=== PATIENT | female | born 1980 | race Two or more races ===

== ENCOUNTER 2024-02-19 19:12 | Emergency (ER) | payer MEDICARE, MEDICAID ==
[~2024-02-19] VITALS: Ht 152.4 cm; Wt 50.0 kg
[2024-02-19] MEDS: SODIUM CHLORIDE 0.9% 500 ML IV ONE (20:00)
[2024-02-19 20:24] LABS: Basophils # (auto) 0.1 10 ^3/uL (0-0.2); Basophils % (auto) 1.3 % (0.0-2.0); Eosinophils # (auto) 0.2 10 ^3/uL (0-0.8); Eosinophils % (auto) 2.1 % (0.0-7.0); Hematocrit 31.6 % (36.0-46.0); Hemoglobin 10.2 g/dL (12.2-16.2); Lymphocytes # (auto) 1.1 10 ^3/uL (0.4-5.4); Lymphocytes % (auto) 14.9 % (10.0-50.0); Mean Corpuscular Hemoglobin 30.2 pg (28.0-32.0); Mean Corpuscular Hgb Conc. 32.2 g/dL (32.0-36.0); Mean Corpuscular Volume 93.7 fL (80.0-100.0); Monocytes # (auto) 0.6 10 ^3/uL (0-1.3); Monocytes % (auto) 7.7 % (0.0-12.0); Neutrophils # (auto) 5.7 10 ^3/uL (1.6-8.6); Red Blood Cells 3.38 10^6/uL (4.0-5.20); Red Cell Distribution Width 13.5 % (11.8-14.3); White Blood Cell 7.7 10^3/uL (4.4-10.8)
[2024-02-19 20:40] LABS: Alanine Aminotransferase 68 U/L (7-40); Albumin 4.3 g/dL (3.2-4.8); Alkaline Phosphatase 278 U/L (46-116); Anion Gap 9 (5-15); Aspartate Aminotransferase 31 U/L (13-40); BUN/Creatinine Ratio 19.3 (10.0-20.0); Blood Urea Nitrogen 55 mg/dL (9-23); Calcium 9.5 mg/dL (8.7-10.4); Carbon Dioxide 32 mmol/L (20-30); Chloride 93 mmol/L (98-107); Glucose 253 mg/dL (74-106); Magnesium 2.1 mg/dL (1.6-2.6); Potassium 3.7 mmol/L (3.5-5.1); Sodium 134 mmol/L (136-145)
[2024-02-19 20:41] LABS: Bilirubin, Total 0.2 mg/dL (0.2-1.0); Total Protein 7.8 g/dL (5.7-8.2)
[2024-02-20] MEDS: ACETAMINOPHEN 325 MG TAB PO ONE (03:29)
[2024-02-20 05:24] VITALS: PULSE 86; RESP 15; O2SAT 98
[2024-02-20 07:50] VITALS: PULSE 88; RESP 14; O2SAT 100
[2024-02-20 08:00] VITALS: TEMP 97.9
[2024-02-20 11:00] VITALS: BP 140/74; PULSE 84; RESP 14; O2SAT 100
== END 2024-02-20 11:56 | disposition home or self-care (01) ==
LOC: EDBD 19:12 → ER 19:12
DX: E86.0 Dehydration (principal); E11.22 Type 2 diabetes mellitus with diabetic chronic kidney disease; I12.0 Hypertensive chronic kidney disease with stage 5 chronic kidney disease or end stage renal disease; N18.6 End stage renal disease; Z99.2 Dependence on renal dialysis
CPT/HCPCS: 36415; 80053; 83735; 84484; 85025; 93005